=== PATIENT | male | born 2000 | race African-American/Black ===

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

== ENCOUNTER 2023-12-25 12:53 | Emergency (ER) | payer MEDICAID ==
[~2023-12-25] VITALS: Ht 177.8 cm; Wt 60.0 kg
[2023-12-25 12:58] VITALS: O2SAT 100
[2023-12-25] MEDS: BACITRACIN ZINC OINT UDPKT TOP ONE (13:45)
[2023-12-25] MEDS: LIDOCAINE HCL/EPINEPHRINE 1%-EPI 1:100,000 20 ML VIAL INFIL ONE (13:45)
[2023-12-25] MEDS ORDERED: IBUP-2029 MT (14:29)
[2023-12-25] MEDS ORDERED: CEPH500T MT (14:29)
[2023-12-25] MEDS ORDERED: DOXY100C5 MT (14:29)
[2023-12-25 14:50] VITALS: BP 120/69; PULSE 77; RESP 18; TEMP 98.8
== END 2023-12-25 15:39 | disposition home or self-care (01) ==
LOC: ER 12:53
DX: L02.211 Cutaneous abscess of abdominal wall (principal); J45.909 Unspecified asthma, uncomplicated
CPT/HCPCS: 10060; 99283; J3490; Z7610 ×3

== ENCOUNTER 2023-12-27 09:51 | Emergency (ER) | payer MEDICAID ==
[~2023-12-27] VITALS: Ht 180.3 cm; Wt 61.0 kg
[~2023-12-27 09:51] MED LIST changes: +CEPH500T MT; +DOXY100C5 MT; +IBUP-2029 MT
[2023-12-27 09:59] VITALS: BP 109/72; PULSE 72; RESP 20; TEMP 98.2; O2SAT 100
== END 2023-12-27 11:32 | disposition home or self-care (01) ==
LOC: ER 09:51
DX: M79.89 Other specified soft tissue disorders (principal); J45.909 Unspecified asthma, uncomplicated; Z48.01 Encounter for change or removal of surgical wound dressing; Z79.899 Other long term (current) drug therapy
CPT/HCPCS: 99281